=== PATIENT | female | born 1935 | race Caucasian/White ===

== ENCOUNTER 2017-05-12 13:53 | Inpatient (IN) | payer MEDICARE, OTHER ==
[~2017-05-12] VITALS: Ht 157.5 cm; Wt 59.1 kg
[~2017-05-12 13:53] MED LIST: ESTR0.45 PO; LEVO25TA4 PO; OMEP-110 PO
[2017-05-12] MEDS ORDERED: SODIUM CHLORIDE 0.9% 1,000 ML IV ONE (14:45)
[2017-05-12 14:50] LABS: BASOPHILS # (AUTO) 0.03 x10^3/uL (0-0.1); BASOPHILS % (AUTO) 1 % (0-1); EOSINOPHILS # (AUTO) 0.77 x10^3/uL (0-0.4); EOSINOPHILS % (AUTO) 12 % (1-7); LYMPHOCYTES # (AUTO) 0.93 x10^3/uL (1-3.4); LYMPHOCYTES % (AUTO) 15 % (22-44); MD NO; MEAN CORPUSCULAR HEMOGLOBIN 29.4 pg (27.0-34.8); MEAN CORPUSCULAR HGB CONC 34.6 g/dL (32.4-35.8); MEAN CORPUSCULAR VOLUME 85.1 fL (80-100); MEAN PLATELET VOLUME 7.6 fL (7.4-10.4); MONOCYTES # (AUTO) 0.57 x10^3/uL (0.2-0.8); MONOCYTES % (AUTO) 9 % (2-9); NEUTROPHILS # (AUTO) 4.15 x10^3/uL (1.8-6.8); NEUTROPHILS % (AUTO) 64 % (42-75); PLATELET COUNT 341 x10^3/uL (130-400); RED BLOOD COUNT 3.33 x10^6/uL (3.82-5.3); RED CELL DISTRIBUTION WIDTH 17.3 % (9.6-15.2)
[2017-05-12 14:52] LABS: ALBUMIN 3.5 g/dL (3.4-5.0); ANION GAP 10 mmol/L (5-15); CALCIUM 8.2 mg/dL (8.5-10.1); CHLORIDE 102 mmol/L (98-107); CREATININE 0.92 mg/dL (0.55-1.02)
[2017-05-12] MEDS ORDERED: AZITHROMYCIN 500 MG TABLET PO ONE (15:00)
[2017-05-12] MEDS ORDERED: CEFTRIAXONE PMX 1GM/50ML 50 ML IVPB ONE (15:00)
[2017-05-12] MEDS ORDERED: CEFTRIAXONE PMX 1GM/50ML 50 ML ONE (15:31)
[2017-05-12] MEDS ORDERED: POLYETHYLENE GLYCOL 17 GM PACKET PO PRN (16:30)
[2017-05-12] MEDS ORDERED: ONDANSETRON 2MG/ML, 2ML IVPush PRN (16:30)
[2017-05-12] MEDS ORDERED: HYDROcodone/APAP 5/325 TABLET PO PRN (16:30)
[2017-05-12] MEDS: CEFTRIAXONE PMX 1GM/50ML 50 ML IV SCH (16:30)
[2017-05-12] MEDS: GUAIFENESIN 200 MG TABLET PO SCH ×3 (16:30→19:42)
[2017-05-12] MEDS ORDERED: LABETALOL 5MG/ML, 20ML IVPush PRN (16:30)
[2017-05-12] MEDS ORDERED: ONDANSETRON ODT 4 MG PO PRN (16:30)
[2017-05-12 16:47] LABS: FREE T4 (FREE THYROXINE) 0.96 ng/dL (0.76-1.46); THYROID STIMULATING HORMONE 4.14 mIU/L (0.358-3.740)
[2017-05-12 16:55] VITALS: BP 116/63
[2017-05-12 19:06] VITALS: BP 138/59
[2017-05-12 19:25] VITALS: BP 138/59
[2017-05-12] MEDS: DOXYCYCLINE 100MG TABLET PO SCH (19:41)
[2017-05-12] MEDS: ENOXAPARIN 40 MG/0.4 ML SQ SCH (19:42)
[2017-05-13] MEDS ORDERED: DIPHENHYDRAMINE 25 MG CAPSULE PO PRN
[2017-05-13 03:44] VITALS: BP 112/62
[2017-05-13] MEDS: GUAIFENESIN 200 MG TABLET PO SCH ×6 (05:09→20:19)
[2017-05-13 06:07] LABS: ANION GAP 9 mmol/L (5-15); CALCIUM 8.4 mg/dL (8.5-10.1); CHLORIDE 107 mmol/L (98-107)
[2017-05-13 06:10] LABS: ALANINE AMINOTRANSFERASE 50 U/L (12-78); ALKALINE PHOSPHATASE 67 U/L (45-117); BILIRUBIN,TOTAL 0.5 mg/dL (0.2-1.0); CREATININE 0.83 mg/dL (0.55-1.02); TOTAL PROTEIN 6.1 g/dL (6.4-8.2)
[2017-05-13 06:19] LABS: BASOPHILS # (AUTO) 0.02 x10^3/uL (0-0.1); BASOPHILS % (AUTO) 0 % (0-1); EOSINOPHILS # (AUTO) 0.64 x10^3/uL (0-0.4); EOSINOPHILS % (AUTO) 10 % (1-7); LYMPHOCYTES % (AUTO) 23 % (22-44); MD NO; MEAN CORPUSCULAR HEMOGLOBIN 29.5 pg (27.0-34.8); MEAN CORPUSCULAR HGB CONC 34.9 g/dL (32.4-35.8); MEAN CORPUSCULAR VOLUME 84.5 fL (80-100); MEAN PLATELET VOLUME 7.9 fL (7.4-10.4); MONOCYTES # (AUTO) 0.62 x10^3/uL (0.2-0.8); MONOCYTES % (AUTO) 10 % (2-9); NEUTROPHILS # (AUTO) 3.47 x10^3/uL (1.8-6.8); NEUTROPHILS % (AUTO) 57 % (42-75); PLATELET COUNT 320 x10^3/uL (130-400); RED BLOOD COUNT 2.99 x10^6/uL (3.82-5.3); RED CELL DISTRIBUTION WIDTH 17.2 % (9.6-15.2)
[2017-05-13 08:00] VITALS: BP 112/62
[2017-05-13] MEDS: SENNA/DOCUSATE TABLET PO SCH (09:00)
[2017-05-13] MEDS: TEMPLATE NON-FORMULARY MED. (Estrogens, Conjugated** (Premarin**) 0.45 MG) PO SCH (09:00)
[2017-05-13] MEDS ORDERED: IBUPROFEN 200 MG TABLET PO PRN (10:00)
[2017-05-13] MEDS: LEVOTHYROXINE 25 MCG TABLET PO SCH (12:06)
[2017-05-13] MEDS: DOXYCYCLINE 100MG TABLET PO SCH ×2 (12:07→20:19)
[2017-05-13] MEDS: OMEPRAZOLE 20 MG CAPSULE.DR PO SCH (12:08)
[2017-05-13 13:10] VITALS: BP 103/63
[2017-05-13 14:37] LABS: BASOPHILS # (AUTO) 0.05 x10^3/uL (0-0.1); BASOPHILS % (AUTO) 1 % (0-1); EOSINOPHILS % (AUTO) 11 % (1-7); LYMPHOCYTES % (AUTO) 26 % (22-44); MD NO; MEAN CORPUSCULAR HEMOGLOBIN 29.2 pg (27.0-34.8); MEAN CORPUSCULAR HGB CONC 34.3 g/dL (32.4-35.8); MEAN CORPUSCULAR VOLUME 85.2 fL (80-100); MEAN PLATELET VOLUME 7.2 fL (7.4-10.4); MONOCYTES % (AUTO) 11 % (2-9); NEUTROPHILS # (AUTO) 2.77 x10^3/uL (1.8-6.8); NEUTROPHILS % (AUTO) 51 % (42-75); PLATELET COUNT 347 x10^3/uL (130-400); RED BLOOD COUNT 3.07 x10^6/uL (3.82-5.3)
[2017-05-13 14:44] LABS: ALBUMIN 3.1 g/dL (3.4-5.0); ANION GAP 9 mmol/L (5-15); CALCIUM 8.5 mg/dL (8.5-10.1); CHLORIDE 104 mmol/L (98-107); CREATININE 0.79 mg/dL (0.55-1.02)
[2017-05-13] MEDS: CEFTRIAXONE PMX 1GM/50ML 50 ML IV SCH (17:00)
[2017-05-13 19:18] VITALS: BP 130/71
[2017-05-13] MEDS: ENOXAPARIN 40 MG/0.4 ML SQ SCH (20:18)
[2017-05-13] MEDS: MELATONIN 5 MG TABLET PO PRN (20:19)
[2017-05-14 01:49] VITALS: BP 117/61
[2017-05-14] MEDS: GUAIFENESIN 200 MG TABLET PO SCH ×4 (05:42→20:50)
[2017-05-14 06:00] LABS: BASOPHILS # (AUTO) 0.05 x10^3/uL (0-0.1); BASOPHILS % (AUTO) 1 % (0-1); EOSINOPHILS # (AUTO) 0.68 x10^3/uL (0-0.4); EOSINOPHILS % (AUTO) 11 % (1-7); LYMPHOCYTES # (AUTO) 1.77 x10^3/uL (1-3.4); LYMPHOCYTES % (AUTO) 30 % (22-44); MD NO; MEAN CORPUSCULAR HEMOGLOBIN 29.2 pg (27.0-34.8); MEAN CORPUSCULAR VOLUME 86.1 fL (80-100); MEAN PLATELET VOLUME 7.4 fL (7.4-10.4); MONOCYTES # (AUTO) 0.72 x10^3/uL (0.2-0.8); MONOCYTES % (AUTO) 12 % (2-9); NEUTROPHILS # (AUTO) 2.77 x10^3/uL (1.8-6.8); NEUTROPHILS % (AUTO) 46 % (42-75); PLATELET COUNT 367 x10^3/uL (130-400); RED BLOOD COUNT 3.12 x10^6/uL (3.82-5.3)
[2017-05-14 06:14] LABS: ALBUMIN 3.1 g/dL (3.4-5.0); ANION GAP 8 mmol/L (5-15); CALCIUM 8.5 mg/dL (8.5-10.1); CHLORIDE 108 mmol/L (98-107); CREATININE 0.65 mg/dL (0.55-1.02)
[2017-05-14] MEDS: TEMPLATE NON-FORMULARY MED. (Estrogens, Conjugated** (Premarin**) 0.45 MG) PO SCH (09:00)
[2017-05-14 09:10] VITALS: BP 128/66
[2017-05-14] MEDS: OMEPRAZOLE 20 MG CAPSULE.DR PO SCH (10:13)
[2017-05-14] MEDS: SENNA/DOCUSATE TABLET PO SCH (10:14)
[2017-05-14] MEDS: LEVOTHYROXINE 25 MCG TABLET PO SCH (10:14)
[2017-05-14] MEDS: DOXYCYCLINE 100MG TABLET PO SCH ×2 (10:14→20:50)
[2017-05-14 12:50] VITALS: BP 143/66
[2017-05-14] MEDS: CEFTRIAXONE PMX 1GM/50ML 50 ML IV SCH (18:18)
[2017-05-14] MEDS: MELATONIN 5 MG TABLET PO PRN (20:50)
[2017-05-14] MEDS: ENOXAPARIN 40 MG/0.4 ML SQ SCH (20:51)
[2017-05-14 20:57] VITALS: BP 136/76
[2017-05-15 02:23] VITALS: BP 124/69
[2017-05-15] MEDS: IBUPROFEN 200 MG TABLET PO PRN (02:27)
[2017-05-15 05:57] LABS: ALBUMIN 3.1 g/dL (3.4-5.0); ANION GAP 10 mmol/L (5-15); BASOPHILS # (AUTO) 0.08 x10^3/uL (0-0.1); BASOPHILS % (AUTO) 1 % (0-1); CALCIUM 8.7 mg/dL (8.5-10.1); CHLORIDE 105 mmol/L (98-107); EOSINOPHILS # (AUTO) 0.59 x10^3/uL (0-0.4); EOSINOPHILS % (AUTO) 9 % (1-7); LYMPHOCYTES # (AUTO) 1.68 x10^3/uL (1-3.4); LYMPHOCYTES % (AUTO) 24 % (22-44); MD NO; MEAN CORPUSCULAR HEMOGLOBIN 29.2 pg (27.0-34.8); MEAN CORPUSCULAR HGB CONC 34.1 g/dL (32.4-35.8); MEAN CORPUSCULAR VOLUME 85.8 fL (80-100); MEAN PLATELET VOLUME 7.1 fL (7.4-10.4); MONOCYTES # (AUTO) 0.71 x10^3/uL (0.2-0.8); MONOCYTES % (AUTO) 10 % (2-9); NEUTROPHILS # (AUTO) 3.86 x10^3/uL (1.8-6.8); NEUTROPHILS % (AUTO) 56 % (42-75); PLATELET COUNT 430 x10^3/uL (130-400); RED BLOOD COUNT 3.07 x10^6/uL (3.82-5.3); RED CELL DISTRIBUTION WIDTH 17.7 % (9.6-15.2)
[2017-05-15] MEDS: GUAIFENESIN 200 MG TABLET PO SCH ×4 (05:59→21:47)
[2017-05-15] MEDS: SENNA/DOCUSATE TABLET PO SCH (09:00)
[2017-05-15] MEDS: TEMPLATE NON-FORMULARY MED. (Estrogens, Conjugated** (Premarin**) 0.45 MG) PO SCH (09:00)
[2017-05-15 09:32] VITALS: BP 138/72
[2017-05-15] MEDS: OMEPRAZOLE 20 MG CAPSULE.DR PO SCH (11:47)
[2017-05-15] MEDS: LEVOTHYROXINE 25 MCG TABLET PO SCH (11:48)
[2017-05-15] MEDS: DOXYCYCLINE 100MG TABLET PO SCH ×2 (11:49→21:47)
[2017-05-15 14:00] VITALS: BP 138/72
[2017-05-15] MEDS ORDERED: GUAIFENESIN/DM 200-20MG, 10ML UDC PO PRN (15:00)
[2017-05-15] MEDS: CEFTRIAXONE PMX 1GM/50ML 50 ML IV SCH (19:01)
[2017-05-15 19:22] VITALS: BP 117/62
[2017-05-15] MEDS: ENOXAPARIN 40 MG/0.4 ML SQ SCH (21:00)
[2017-05-15] MEDS: MELATONIN 5 MG TABLET PO PRN (21:47)
[2017-05-16 02:57] VITALS: BP 133/67
[2017-05-16] MEDS: IBUPROFEN 200 MG TABLET PO PRN (03:03)
[2017-05-16 04:37] LABS: BASOPHILS % (AUTO) 1 % (0-1); EOSINOPHILS # (AUTO) 0.55 x10^3/uL (0-0.4); EOSINOPHILS % (AUTO) 7 % (1-7); LYMPHOCYTES # (AUTO) 1.88 x10^3/uL (1-3.4); LYMPHOCYTES % (AUTO) 23 % (22-44); MD NO; MEAN CORPUSCULAR HEMOGLOBIN 29.2 pg (27.0-34.8); MEAN CORPUSCULAR VOLUME 85.8 fL (80-100); MEAN PLATELET VOLUME 6.9 fL (7.4-10.4); MONOCYTES # (AUTO) 0.76 x10^3/uL (0.2-0.8); MONOCYTES % (AUTO) 9 % (2-9); NEUTROPHILS # (AUTO) 4.89 x10^3/uL (1.8-6.8); NEUTROPHILS % (AUTO) 60 % (42-75); PLATELET COUNT 472 x10^3/uL (130-400); RED BLOOD COUNT 3.18 x10^6/uL (3.82-5.3); RED CELL DISTRIBUTION WIDTH 17.8 % (9.6-15.2)
[2017-05-16 04:46] LABS: ANION GAP 7 mmol/L (5-15); CALCIUM 8.5 mg/dL (8.5-10.1); CHLORIDE 105 mmol/L (98-107); CREATININE 0.83 mg/dL (0.55-1.02)
[2017-05-16] MEDS: GUAIFENESIN 200 MG TABLET PO SCH ×2 (06:28→12:32)
[2017-05-16] MEDS ORDERED: methylPREDNISolone SOD SUCC 125 MG/2 ML IVPush ONE (07:30)
[2017-05-16] MEDS ORDERED: POTASSIUM CHLORIDE 20 MEQ TAB.ER.PRT PO ONE (07:30)
[2017-05-16 07:44] VITALS: BP 123/68
[2017-05-16] MEDS: SENNA/DOCUSATE TABLET PO SCH (07:47)
[2017-05-16] MEDS: OMEPRAZOLE 20 MG CAPSULE.DR PO SCH (07:47)
[2017-05-16] MEDS: DOXYCYCLINE 100MG TABLET PO SCH (07:47)
[2017-05-16] MEDS: LEVOTHYROXINE 25 MCG TABLET PO SCH (07:47)
[2017-05-16] MEDS ORDERED: CEFD300C37 PO (08:12)
[2017-05-16] MEDS ORDERED: DOXY100T PO (08:12)
[2017-05-16] MEDS ORDERED: PRED20TA PO (08:12)
[2017-05-16] MEDS ORDERED: GUAI200T3 PO (08:13)
[2017-05-16] MEDS ORDERED: ALBU8.5H8 INH (08:14)
[2017-05-16] MEDS ORDERED: BUDE10.2 INH (08:15)
[2017-05-16] MEDS: TEMPLATE NON-FORMULARY MED. (Estrogens, Conjugated** (Premarin**) 0.45 MG) PO SCH (09:00)
[2017-05-16] MEDS ORDERED: CEFTRIAXONE 1,000 MG in DEXTROSE 5% 50 ML IV SCH (12:15)
== END 2017-05-16 14:08 | disposition home or self-care (01) | DRG 193 ==
LOC: ED 14:56 → EDIP 14:57 → 3NE 16:14
PROVIDERS: ADMIT Hospitalist; ATTEND Hospitalist
DX: J18.9 Pneumonia, unspecified organism (principal); I50.31 Acute diastolic (congestive) heart failure; J44.0 Chronic obstructive pulmonary disease with (acute) lower respiratory infection; E87.1 Hypo-osmolality and hyponatremia; D64.9 Anemia, unspecified; J44.1 Chronic obstructive pulmonary disease with (acute) exacerbation; Z66 Do not resuscitate; E87.6 Hypokalemia; E03.9 Hypothyroidism, unspecified; K21.9 Gastro-esophageal reflux disease without esophagitis; Z82.49 Family history of ischemic heart disease and other diseases of the circulatory system; Z87.891 Personal history of nicotine dependence; Z88.2 Allergy status to sulfonamides; Z90.710 Acquired absence of both cervix and uterus; Z88.6 Allergy status to analgesic agent; Z88.0 Allergy status to penicillin; Z88.8 Allergy status to other drugs, medicaments and biological substances
CPT/HCPCS: 36415; 71045; 80048; 80053; 82040; 83735; 84100; 84439; 84443; 85025; 87040; 87070; 87205; 93005; 93306; 99285; J0696; Q0162; J2930; J7030; J7512; Q0163

== ENCOUNTER 2019-09-18 11:52 | Emergency (ER) | payer MEDICARE ==
[~2019-09-18] VITALS: Ht 157.5 cm; Wt 56.4 kg
[~2019-09-18 11:52] MED LIST changes: +ALBU8.5H8 INH; +ATOR-2 PO; +BUDE10.2 INH; +CEFD300C37 PO; +DOXY100T PO; +GLAUCOMA EYE DROPS; +GUAI200T37 PO; +LEVO750T6 PO; +OMEP20TA62 PO; +PRED20TA PO; +PRIM50TA PO
--- NOTE | 2019-09-18 12:17 | NUR ---
Pt arrives to ed after having a GLF at home last mindy night. Pt reports she hurt the back of her head and chest. Pt denies loss of loc. Pt reports her pain is only getting worse and her chest hurts when she takes a deep breath. Pt ambulates to baseline and has no obivious neuro deficets. Pt has no slurred speech and denies use of bloodthinners or ASA. Pt connected to monitors and call light in reach. Awaiting further orders. Pt is a/ox4 and gcs of 15 which is baseline.
--- NOTE | 2019-09-18 12:38 | NUR ---
Pt to ct.
[2019-09-18] MEDS ORDERED: ACETAMINOPHEN 500 MG TABLET ONE (12:45)
[2019-09-18] MEDS ORDERED: ACETAMINOPHEN 500 MG TABLET PO ONE (13:00)
[2019-09-18 13:02] VITALS: BP 123/63
--- NOTE | 2019-09-18 13:22 | NUR ---
Patient/Caregiver given discharge instructions and they have confirmed that they understand the instructions. Patient ambulatory with steady gait.
--- NOTE | 2019-09-18 13:30 | NUR ---
Pt given incentive spirometer to prevent pneumonia at home. Pt also taught how to splint cough.
== END 2019-09-18 13:48 | disposition home or self-care (01) ==
LOC: ED 13:05
DX: S20.211A Contusion of right front wall of thorax, initial encounter (principal); S00.03XA Contusion of scalp, initial encounter; S10.93XA Contusion of unspecified part of neck, initial encounter; S09.90XA Unspecified injury of head, initial encounter; Z88.0 Allergy status to penicillin; Z88.2 Allergy status to sulfonamides; Z88.5 Allergy status to narcotic agent; W18.30XA Fall on same level, unspecified, initial encounter; Y93.89 Activity, other specified; Y92.009 Unspecified place in unspecified non-institutional (private) residence as the place of occurrence of the external cause; Y99.8 Other external cause status
CPT/HCPCS: 70450; 71250; 72125; 99285